=== PATIENT | female | born 1995 | race Native Hawaiian/Other Pacific Islander ===

== ENCOUNTER 2023-03-17 09:12 | Emergency (ER) | payer OTHER ==
[~2023-03-17] VITALS: Ht 165.1 cm; Wt 127.0 kg
[2023-03-17 09:20] VITALS: BP 195/117; TEMP 98.1
== END 2023-03-17 09:48 | disposition home or self-care (01) ==
LOC: ED 09:12
DX: K08.89 Other specified disorders of teeth and supporting structures (principal)
CPT/HCPCS: 99281

== ENCOUNTER 2023-03-19 22:00 | Emergency (ER) | payer OTHER ==
[~2023-03-19] VITALS: Ht 165.1 cm; Wt 129.7 kg
[2023-03-19 22:05] VITALS: BP 151/97; TEMP 97.7
== END 2023-03-20 00:52 | disposition home or self-care (01) ==
LOC: ED 22:00
DX: K04.7 Periapical abscess without sinus (principal); K02.9 Dental caries, unspecified
CPT/HCPCS: 96372; 99283; J2270; J2405